=== PATIENT | male | born 1950 | race Caucasian/White ===

== ENCOUNTER 2017-12-16 08:04 | Day surgery (SDC) | payer OTHER ==
[~2017-12-16] VITALS: Ht 185.4 cm; Wt 125.0 kg
[~2017-12-16 08:04] MED LIST: CYAN500 PO; Colace250 MG PO; Crestor20 MG PO; ELIQUIS5 MG PO; Hytrin2 MG PO; LORA.5 PO; Nitrostat0.4 MG SL; Omeprazole20 M1 PO; PYRI100 PO; THIA100 PO
[2017-12-16 08:47] LABS: International Normalized Ratio 1.03; Prothrombin Time Results 10.7 Sec (9.7-11.5)
[2017-12-16 08:58] LABS: Anion Gap 7 mmol/L (6-16); Blood Urea Nitrogen 15 mg/dL (8-24); Bun/Creatinine Ratio 13.6 (12.0-20.0); CO2, Blood 27 mmol/L (21-32); Calcium, Blood 9.5 mg/dL (8.5-10.1); Chloride, Blood 104 mmol/L (98-108); Glomerular Filtration Rate >60 (60-); Glucose, Blood 119 mg/dL (70-99); Potassium, Blood 4.4 mmol/L (3.5-5.5); Sodium, Blood 138 mmol/L (136-145)
[2018-01-09] MEDS ORDERED: AMLO10 PO (13:52)
[2018-01-09] MEDS ORDERED: B-6200 MG PO (13:52)
[2018-01-09] MEDS ORDERED: B-121000 MC2 PO (13:53)
[2018-01-09] MEDS ORDERED: THIA100 PO (13:53)
[2018-01-09] MEDS ORDERED: Nitrostat0.4 MG SL (13:54)
== END 2017-12-16 22:36 | disposition home or self-care (01) ==
LOC: MHTC 08:04
PROVIDERS: Internal Medicine Clinical Cardiac Electrophysiology
PROC: 5A2204Z Restoration of Cardiac Rhythm, Single (ICD-10-PCS; principal; 2017-12-16)
DX: I48.1 Persistent atrial fibrillation (principal); J44.9 Chronic obstructive pulmonary disease, unspecified; I10 Essential (primary) hypertension; G47.30 Sleep apnea, unspecified; E78.00 Pure hypercholesterolemia, unspecified; K21.9 Gastro-esophageal reflux disease without esophagitis; M19.90 Unspecified osteoarthritis, unspecified site; K44.9 Diaphragmatic hernia without obstruction or gangrene; F43.10 Post-traumatic stress disorder, unspecified; E29.1 Testicular hypofunction; Z79.01 Long term (current) use of anticoagulants; Z79.899 Other long term (current) drug therapy; Z87.891 Personal history of nicotine dependence
CPT/HCPCS: 36415; 80048; 83735; 85610; 92960; 93005; 93010; 99152; J7040

== ENCOUNTER 2018-01-12 01:38 | Day surgery (SDC) | payer OTHER ==
[~2018-01-12 01:38] MED LIST changes: +AMLO10 PO; +B-121000 MC2 PO; +B-6200 MG PO
[2018-01-12 10:20] LABS: BASOPHILS ABSOLUTE AUTO 0.06 K/mm3 (0.00-0.23); BASOPHILS PERCENT AUTO 1 % (0-2); EOSINOPHILS ABSOLUTE AUTO 0.14 K/mm3 (0.00-0.68); EOSINOPHILS PERCENT AUTO 2 % (0-6); Hematocrit 52.4 % (37.0-53.0); Hemoglobin 17.8 g/dL (13.5-17.5); IMMATURE GRAN ABSOLUTE AUTO 0.05 K/mm3 (0.00-0.10); IMMATURE GRAN PERCENT AUTO 1 % (0-1); LYMPHOCYTES ABSOLUTE AUTO 1.68 K/mm3 (0.84-5.20); LYMPHOCYTES PERCENT AUTO 22 % (21-46); MONOCYTES PERCENT AUTO 8 % (4-13); Mean Corpuscular HGB 30.8 pg (26.0-34.0); Mean Corpuscular Volume 91 fL (80-100); Mean Platelet Volume 9.9 fL (9.1-12.4); NEUTROPHILS ABSOLUTE AUTO 5.07 K/mm3 (1.96-9.15); NEUTROPHILS PERCENT AUTO 67 % (41-73); Platelet Count 216 K/mm3 (150-400); RDW Coefficient Variation 13.9 % (11.7-14.2); RDW Standard Deviation 46.2 fL (35.1-46.3); Red Blood Cell Count 5.77 M/mm3 (4.30-5.90)
[2018-01-12 10:30] LABS: International Normalized Ratio 1.01; Prothrombin Time Results 10.5 Sec (9.7-11.5)
[2018-01-12 10:49] LABS: Anion Gap 3 mmol/L (6-16); Blood Urea Nitrogen 13 mg/dL (8-24); Bun/Creatinine Ratio 12.4 (12.0-20.0); CO2, Blood 29 mmol/L (21-32); Calcium, Blood 9.3 mg/dL (8.5-10.1); Chloride, Blood 106 mmol/L (98-108); Creatinine, Blood 1.05 mg/dL (0.60-1.20); Glomerular Filtration Rate >60 (60-); Glucose, Blood 109 mg/dL (70-99); Potassium, Blood 4.3 mmol/L (3.5-5.5); Sodium, Blood 138 mmol/L (136-145)
[2018-01-12] MEDS ORDERED: Pacerone400 MG PO (12:54)
[2018-01-12] MEDS ORDERED: METO25ER PO (12:56)
[2018-01-12] MEDS ORDERED: Amiodarone HCl200 MG PO (13:18)
== END 2018-01-12 23:03 | disposition home or self-care (01) ==
LOC: ECHO 01:38 → MHTC 01:38 → ECHO 09:44 → MHTC 09:44 → ECHO 11:00 → EDSTATUS 11:00 → ECHO 23:03 → MHTC 23:03
PROVIDERS: Internal Medicine Clinical Cardiac Electrophysiology
PROC: 5A2204Z Restoration of Cardiac Rhythm, Single (ICD-10-PCS; principal; 2018-01-12)
DX: I48.1 Persistent atrial fibrillation (principal); J44.9 Chronic obstructive pulmonary disease, unspecified; I10 Essential (primary) hypertension; E78.00 Pure hypercholesterolemia, unspecified; G47.30 Sleep apnea, unspecified; Z79.01 Long term (current) use of anticoagulants; Z87.891 Personal history of nicotine dependence
CPT/HCPCS: 36415; 80048; 85025; 85610; 92960; 93005; 93010; 93306; J0282; J2250; J7030